=== PATIENT | female | born 1985 | race Caucasian/White ===

== ENCOUNTER 2020-06-10 17:45 | Inpatient (IN) | payer OTHER ==
--- NOTE | 2020-06-10 18:38 | PD.OB.PROG ---
Past Medical History - Primary Care Physician PCP:: Una uNnez Documenting Provider Type: Attending - Admission Chief Complaint: 35 yrs , 39.2 weeks c/o onset LP since 1.00 PM q 10 min. no c/o bleeding or leaking History of Present Illness: [facility] : 11[facility]17[facility]19 O Pos, , Hbsag neg, hep c nr, varicella immune, rubella immune, measles immune, sickle neg , pap NILM, hpv neg, gc/ct neg , hiv neg 03/20/20 1 hr gtt 123, syphilis test neg , Quantiferon ; not noted 05/17/20 : h/h 11.3/35.2, plt 215, GBS POS , gc/ct neg , hiv nr US ;neg NT& NIPT ,04/15/20 : 31.5 wks, vx, post placenta, alok 13.3 efw 4'5" (61 %tile) , - Nursing Documentation Maternal Triage Index: Maternal Triage Index ( Priority 4, Non-urgent MFTI) Nursing Documentation Reviewed: Yes - Past Medical History ...: 2 ...Para: 3 ...Term: 3 ...: 0 ...Spon : 0 ...Induced : 0 ...Living Children: 3 ...LMP: 09/09/20 ... Weeks Gestation by Dates: 39.2 ...EDC by Dates: 06/15/20 - Past Surgical History Past Surgical History: Yes: Carotid Endarterectomy - Smoking History Smoking history: Never smoked Have you smoked in the past 12 months: No - Alcohol/Substance Use Hx Alcohol Use: No History of Substance Use: reports: None - Social History History of Recent Travel: No Review of Systems - Review of Systems Constitutional: reports: No Symptoms Eyes: reports: No Symptoms HENT: reports: No Symptoms Neck: reports: No Symptoms Cardiovascular: reports: No Symptoms Respiratory: reports: No Symptoms Gastrointestinal: reports: No Symptoms Genitourinary: reports: No Symptoms Breasts: reports: No Symptoms Reported Musculoskeletal: reports: No Symptoms Integumentary: reports: No Symptoms Neurological: reports: No Symptoms Endocrine: reports: No Symptoms Hematology/Lymphatic: reports: No Symptoms Psychiatric: reports: No Symptoms Pain Intensity: 5 Physical Exam - Obstetrical Constitutional: Yes: Well Nourished, No Distress, Calm Eyes: Yes: WNL HENT: Yes: WNL Neck: Yes: WNL Cardiovascular: Yes: WNL Lungs: Clear to auscultation Breast(s): Yes: Other (not examined) - Abdominal Exam/OB Fundal Height: 38 Number of Fetuses: Single Presentation: Vertex Regularity: Irregular Intensity: Mild Monitor Mode: External Heart Rate (range): 130-140 Heart Rate Location: [facility] Category: I Accelerations: Non-Uniform Decelerations: None - Vaginal Exam/OB Vaginal Bleeding: No Speculum Exam: No Dilatation (cm): FT Effacement (%): unefface Amniotic Membrane Status: Intact Presentation: Vertex/Position Station: -3 - Physical Exam Musculoskeletal: Yes: WNL Extremities: Yes: WNL. No: Calf Tenderness Edema: LLE: Trace, RLE: Trace Integumentary: Yes: WNL Deep Tendon Reflex Grade: Normal +2 ...Motor Strength: WNL Psychiatric: Yes: WNL, Alert, Oriented Problem List - Problems (1) with 39 completed weeks gestation Code(s): Z3A.39 - 39 WEEKS GESTATION OF (2) Positive GBS test Code(s): B95.1 - STREPTOCOCCUS, GROUP B, CAUSING DISEASES CLASSD ELSWHR (3) Labor established Code(s): VCF7377 - Assessment/Plan 35 yrs , 39.2 weeks irregular UC , cx only FT plan watch for UC on monitor for 1 hr , reexamine pt . 8.30 PM reexam pelvic : cx 1-2 cm/65 % /vx -3/-2 uc 3-5 min , fhr 130-140 cat-1 Plan admit patient for labor
[2020-06-10] MEDS ORDERED: SODIUM CHLORIDE 100 ML IVPB ONE (20:32)
[2020-06-10] MEDS ORDERED: AMPICILLIN SODIUM 2 GM VIAL ONE (20:32)
[2020-06-10] MEDS ORDERED: BUTORPHANOL TARTRATE 1 MG/ML VIAL IVPB ONE (20:36)
[2020-06-10] MEDS ORDERED: PROMETHAZINE HCL 25 MG/1 ML VIAL IVPUSH ONE (20:36)
[2020-06-10] MEDS ORDERED: AMPICILLIN - 2 GM in SODIUM CHLORIDE 100 ML IVPB ONE (20:39)
[2020-06-10] MEDS ORDERED: DEXTROSE 5%-LACTATED RINGERS 1,000 ML IV SCH (20:45)
[2020-06-10 21:14] LABS: BASO % 0.2 % (0-2.0); EOS % 0.9 % (0-4.5); HEMATOCRIT 36.4 % (32.4-45.2); HEMOGLOBIN 12.1 GM/dL (10.7-15.3); LYMPH % 28.2 % (8-40); MCH 26.4 pg (25.7-33.7); MCHC 33.4 g/dl (32.0-36.0); MEAN CELL VOLUME 79.2 fl (80-96); MEAN PLT VOLUME 9.1 fl (7.5-11.1); MONO % 6.3 % (3.8-10.2); NEUT % 64.4 % (42.8-82.8); PLATELET COUNT 193 K/MM3 (134-434); WHITE BLOOD COUNT 7.9 K/mm3 (4.0-10.0)
[2020-06-10] MEDS ORDERED: OXYTOCIN 30 UNITS in 0.9% NS 30 UNIT/500 ML INFUS.BAG IVPB SCH (21:15)
[2020-06-10 21:18] VITALS: BMI 27.5
[2020-06-10 21:20] LABS: INR 0.94 (0.83-1.09); PROTHROMBIN TIME (PATIENT) 11.1 SEC (9.7-13.0)
[2020-06-10 21:48] LABS: CREATININE 0.6 mg/dL (0.55-1.3); POTASSIUM 4.2 mmol/L (3.5-5.1)
[2020-06-10] MEDS ORDERED: OXYTOCIN 30 UNITS in 0.9% NS 30 UNIT/500 ML INFUS.BAG IVPB ONE (21:56)
[2020-06-10 22:09] LABS: ANISOCYTOSIS 1+; MACROCYTOSIS 0; PLATELET ESTIMATE NORMAL
[2020-06-10] MEDS ORDERED: LIDOCAINE HCL 1% PRESERVATIVE FREE - 30ML VIAL ONE (22:17)
[2020-06-10] MEDS ORDERED: OXYTOCIN 20 UNITS in 0.9% NS 20 UNIT/1,000 ML INFUS.BAG IV ONE (22:18)
--- NOTE | 2020-06-10 22:24 | HP ---
Past Medical History - Primary Care Physician PCP:: Una Nunez - Admission Chief Complaint: Chief Complaint: 35 yrs , 39.2 weeks c/o onset LP since 1.00 PM q 10 min. no c/o bleeding or leaking. pt was evaluated for labor asssee, there was change in cx after 2hrs , early labor , pt says she has h/o rapid labor , hence she is admitted History of Present Illness: pnc at , [address] [place] [address] panel : 11/17/19 O Pos, , Hbsag neg, hep c nr, varicella immune, rubella immune, measles immune, sickle neg , pap NILM, hpv neg, gc/ct neg , hiv neg 03/20/20 1 hr gtt 123, syphilis test neg , Quantiferon ; not noted 05/17/20 : h/h 11.3/35.2, plt 215, GBS POS , gc/ct neg , hiv nr US ;neg NT& NIPT ,04/15/20 : 31.5 wks, vx, post placenta, alok 13.3 efw 4'5" (61 %tile) , History Source: Patient, Medical Record Limitations to Obtaining History: No Limitations - Past Medical History 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: No: Alzheimer's, CVA, Dementia, Migraine, Multiple Sclerosis, Peripheral Neuropathy, Parkinson's, Seizure, Syncope, TIA, Vertigo, Other Cardiovascular: No: AFIB, Aneurysm, Aortic Insufficiency, Aortic Stenosis, CAD, CHF, Deep Vein Thrombosis, HTN, Hyperlipdemia, [place], Mitral Insufficiency, Mitral Stenosis, Murmur, Pulmonary Hypertension, Other Pulmonary: No: Asthma, Bronchitis, Cancer, COPD, O2 Dependent, Pneumonia, Previously Intubated, Pulmonary Embolus, Pulmonary Fibrosis, Sleep Apnea, Other Gastrointestinal: No: Ascites, Cancer, Constipation, Crohn's Disease, Diverticulitis, Diverticulosis, Esophageal Varices, Gastritis, GERD, GI Bleed, Hemorrhoids, Hiatal Hernia, Inflamatory Bowel Disease, Irritable Bowel Disease, Pancreatitis, Peptic Ulcer Disease, Ulcerative Colitis, Other Hepatobiliary: No: Cirrhosis, Cholelithiasis, Cholecystitis, Choledocholithiasis, Hepatitis A, Hepatitis B, Hepatitis C, Other Renal/: No: Renal Failure, Renal Inusuff, BPH, Cancer, Hematuria, Hemodialysis, Neurogenic Bladder, Renal Calculi, UTI, Other Reproductive: No: Ectopic , Endometriosis, Fibroids, PID, Polycystic Ovary Syndrome, Postmenopausal, Other ...: 4 ...Para: 3 (G1 04/03/06, 8'13" in [place], G2 07/02/11 nsvd7'12', G3 01/11/13 7'13" [facility] ) ...Term: 3 (2012) ...: 0 ...Spon : 0 ...Induced : 0 ...Living Children: 3 ...Multiple Gestation: 0 ...LMP: 09/09/19 ... Weeks Gestation by Dates: 39.2 ...EDC by Dates: 06/15/20 ...EDC by Sono: 06/15/20 Heme/Onc: Yes: Anemia Infectious Disease: No: AIDS, C-Diff, Herpes Zoster, HIV, MRSA, STD's, Tuberculosis, VREF, Other Psych: No: Addictions, Anxiety, Bipolar, Depression, Panic, Psychosis, Schizophrenia, Other Musculoskeletal: No: Bursitis, Chronic low back pain, Hemiparesis, Hemiplegia, Osteoarthritis, Paraplegia, Other Rheumatology: No: Fibromyalgia, Gout, Lupus, Rheumatoid Arthritis, Sarcoidosis, Vasculitis, Other ENT: No: Allergic Rhinitis, Sinusitis, Other Endocrine: No: Ander's Disease, Berlin's Disease, Diabetes Insipidus, Diabetes Mellitus, Hyperparathyroidism, Hyperthyroidism, Hypothyroidism, Osteopenia, SIADH, Other Dermatology: No: Basal Cell, Cellulitis, Eczema, Melanoma, Psoriasis, Squamous Cell, Other - Past Surgical History Past Surgical History: Yes: None Hx Myomectomy: No Hx Transabdominal Cerclage: No - Smoking History Smoking history: Never smoked Have you smoked in the past 12 months: No - Alcohol/Substance Use Hx Alcohol Use: No History of Substance Use: reports: None - Social History History of Recent Travel: No Home Medications - Allergies Allergies/Adverse Reactions: Allergies Allergy/AdvReac Type Severity Reaction Status Date / Time No Known Allergies Allergy Verified 06/10/20 18:18 Review of Systems - Review of Systems Constitutional: reports: No Symptoms Eyes: reports: No Symptoms, Floaters Neck: reports: No Symptoms Cardiovascular: reports: No Symptoms Respiratory: reports: No Symptoms Gastrointestinal: reports: No Symptoms Genitourinary: reports: No Symptoms Breasts: reports: No Symptoms Reported Musculoskeletal: reports: No Symptoms Integumentary: reports: No Symptoms Neurological: reports: No Symptoms Endocrine: reports: No Symptoms Hematology/Lymphatic: reports: No Symptoms Psychiatric: reports: No Symptoms Pain Intensity: 5 Physical Exam - Maternity Vital Signs: Vital Signs Temperature 98.1 F 06/10/20 21:09 Pulse Rate 82 06/10/20 21:09 Respiratory Rate 18 06/10/20 21:09 Blood Pressure 103/67 06/10/20 21:09 O2 Sat by Pulse Oximetry (%) Selected Entries 06/10/20 21:09 Weight 141 lb Constitutional: Yes: Well Nourished, Moderate Distress Eyes: Yes: WNL HENT: Yes: WNL Neck: Yes: WNL Cardiovascular: Yes: WNL Lungs: Clear to auscultation Breast(s): Yes: WNL - Abdominal Exam/OB Fundal Height: 38 Number of Fetuses: Single Presentation: Vertex (exam at 21.08 hr) Contractions: Yes Regularity: Irregular (5-9 min) Intensity: Mild/Mod Monitor Mode: External Heart Rate (range): 120-125 Heart Rate Location: [facility] Category: I Accelerations: Non-Uniform Decelerations: None - Vaginal Exam/OB Vaginal Bleeding: No Speculum Exam: No Dilatation (cm): 1-2 Effacement (%): 65% Amniotic Membrane Status: Intact Presentation: Vertex/Position Station: -2 - Physical Exam Musculoskeletal: Yes: WNL Extremities: Yes: WNL. No: Calf Tenderness Edema: Yes Edema: LLE: 1+, RLE: 1+ Integumentary: Yes: WNL Deep Tendon Reflex Grade: Normal +2 ...Motor Strength: WNL Psychiatric: Yes: WNL, Alert, Oriented - Labs Lab Results: CBC, BMP 06/10/20 20:45 06/10/20 20:45 Laboratory Tests 06/10/20 06/10/20 06/10/20 20:45 20:45 20:45 PT with INR 11.10 INR 0.94 PTT (Actin FS) 27.2 Blood Type O POSITIVE Antibody Screen Negative Laboratory Tests 06/10/20 20:45 Syphilis Serology Non-reactive Hemorrhage Risk Assessment - Risk Factors Medium Risk Factors: Yes: None High Risk Factors: Yes: None Risk Score: 1 Risk Level: Medium Risk Problem List - Problems (1) with 39 completed weeks gestation Code(s): Z3A.39 - 39 WEEKS GESTATION OF (2) Positive GBS test Code(s): B95.1 - STREPTOCOCCUS, GROUP B, CAUSING DISEASES CLASSD ELSWHR (3) Labor established Code(s): XCV1131 - (4) AMA (advanced maternal age) multigravida 35+ Code(s): O09.529 - SUPERVISION OF ELDERLY MULTIGRAVIDA, UNSPECIFIED TRIMESTER Assessment/Plan 35 yrs , 39.2 weeks in early labor . gbs pos Plan rx Iv Ampicillin prophylaxis Anticipate vag del pt declines pain management Pitocin augmentation due to irregular UC 5-9 min
[2020-06-11] MEDS ORDERED: AMPICILLIN SODIUM 1 GM VIAL ONE (00:32)
[2020-06-11] MEDS ORDERED: SODIUM CHLORIDE 100 ML IVPB ONE (00:32)
[2020-06-11] MEDS ORDERED: AMPICILLIN - 1 GM in SODIUM CHLORIDE 100 ML IVPB SCH (00:39)
--- NOTE | 2020-06-11 01:26 | PN ---
Progress Note (short form) - Note Progress Note: srom on 06/10/20 at 23.00 hs in the bathroom. bloody show 00.28 hr cx 3 cm , irregularly efface, ant lip thick , post erior lip 70% efface , mr , Vx -2 fhr 115-125 , cat-1 uc irregular 3-4 min . 1.30 AM 8cm/80 % /mr.vx 0 uc 2-3 min, fhr 130-140 cat-1 2.20 AM fully dilated /100 %/ vx +2 /pt pushing fhr 120 cat-1 uc 2- min Problem List - Problems (1) with 39 completed weeks gestation Code(s): Z3A.39 - 39 WEEKS GESTATION OF (2) Positive GBS test Code(s): B95.1 - STREPTOCOCCUS, GROUP B, CAUSING DISEASES CLASSD ELSWHR (3) Labor established Code(s): GDR3030 - (4) AMA (advanced maternal age) multigravida 35+ Code(s): O09.529 - SUPERVISION OF ELDERLY MULTIGRAVIDA, UNSPECIFIED TRIMESTER
[2020-06-11] MEDS ORDERED: ACETAMINOPHEN 325 MG TABLET (FP) PO PRN (02:56)
[2020-06-11] MEDS ORDERED: BENZOCAINE 28 GM HEMORRHOIDAL OINTMENT TP PRN (02:56)
[2020-06-11] MEDS ORDERED: WITCH HAZEL 50% (TUCKS) 40 PAD/JAR PAD TP PRN (02:56)
[2020-06-11] MEDS ORDERED: BENZOCAINE 20% 57 GM BOTTLE TP PRN (02:56)
[2020-06-11] MEDS ORDERED: BISACODYL 10 MG SUPP.RECT RC PRN (02:56)
[2020-06-11] MEDS ORDERED: METHYLERGONOVINE MALEATE 0.2 MG/1 ML AMP IM PRN (02:56)
[2020-06-11] MEDS ORDERED: IBUPROFEN 600 MG TABLET (FP) PO PRN (02:56)
[2020-06-11] MEDS ORDERED: OXYTOCIN 20 UNITS in 0.9% NS 20 UNIT/1,000 ML INFUS.BAG IV SCH (03:00)
--- NOTE | 2020-06-11 03:05 | PN ---
Delivery - Delivery Vaginal Delivery: No Problems, Spontaneous (pt delievered vx ,MARI position, cord around neck x2 untagled before the delivery of shoulder , . shoulders deievred without difficulty . baby oral & nasal suction done . cord blood collected, trivascular cord. placenta membranes delievered completely.2nd degree perineal laceration sutured under local anesthesia with chr catgut #2/0 in layers. [place] exam mucosa & sphincter intact.) Type of Anesthesia: Local Episiotomy/Laceration: Perineal Extension/lac, 2nd degree EBL (cc): 300 Delivery, Single - Stages of Labor Date 1st Stage Initiatied: 06/10/20 Time 1st Stage Initiated: 20:00 Date 2nd Stage Initiated: 06/11/20 Time 2nd Stage Initiated: 02:20 Date of Delivery: 06/11/20 Time of Delivery: 02:26 Date Placenta Delivered: 06/11/20 Time Placenta Delivered: 02:33 Placenta: Yes: Spontaneous, Uterine Exploration - Condition of Infant Gender: Female Weight: 8 lb 1 oz Position: Left, OA (cord around neck x2) Total Hours ROM (Hrs/Mins): 3hr33 min - 1 Minute Total Score: 9 5 Minutes Total Score: 9 - Feeding Plan Initial Plan: Elected not to breastfeed exclusively throughout hospitalization Remarks - Remarks Remarks: 35 yrs , 39.2 weeks in labor . PNC at , [facility] GBS Pos , rx IV ampicillin x2 doses for prophylaxis given . Intrapartum course uneventful
[2020-06-11] MEDS ORDERED: OXYTOCIN 20 UNITS in 0.9% NS 20 UNIT/1,000 ML INFUS.BAG IV ONE (04:36)
--- NOTE | 2020-06-11 12:35 | PN ---
Post Progress Note - Subjective Subjective: c/o cramps Post Day: 0 Type of Delivery: Vital Signs: Vital Signs Temperature 98.3 F 06/11/20 09:40 Pulse Rate 67 06/11/20 09:40 Respiratory Rate 18 06/11/20 09:40 Blood Pressure 100/49 L 06/11/20 09:40 O2 Sat by Pulse Oximetry (%) 99 06/11/20 09:40 Breast Exam: Yes: Soft, Other (BF ). No: Engorged Uterus: Yes: Fundus Firm, Fundus below umbilicus Lochia: Yes: Rubra Perineum: Yes: Laceration (healing ) Activity: Ambulating - Labs Labs: CBC WBC 7.9 K/mm3 (4.0-10.0) 06/10/20 20:45 RBC 4.60 M/mm3 (3.60-5.2) 06/10/20 20:45 Hgb 12.1 GM/dL (10.7-15.3) 06/10/20 20:45 Hct 36.4 % (32.4-45.2) D 06/10/20 20:45 MCV 79.2 fl (80-96) L 06/10/20 20:45 MCH 26.4 pg (25.7-33.7) 06/10/20 20:45 MCHC 33.4 g/dl (32.0-36.0) 06/10/20 20:45 RDW 28.0 % (11.6-15.6) H 06/10/20 20:45 Plt Count 193 K/MM3 (134-434) D 06/10/20 20:45 MPV 9.1 fl (7.5-11.1) 06/10/20 20:45 Absolute Neuts (auto) 5.1 K/mm3 (1.5-8.0) 06/10/20 20:45 Neutrophils % 64.4 % (42.8-82.8) 06/10/20 20:45 Lymphocytes % 28.2 % (8-40) D 06/10/20 20:45 Monocytes % 6.3 % (3.8-10.2) 06/10/20 20:45 Eosinophils % 0.9 % (0-4.5) 06/10/20 20:45 Basophils % 0.2 % (0-2.0) 06/10/20 20:45 Nucleated RBC % 0 % (0-0) 06/10/20 20:45 Hypochromia 0 06/10/20 20:45 Platelet Estimate Normal 06/10/20 20:45 Polychromasia 1+ 06/10/20 20:45 Poikilocytosis 0 06/10/20 20:45 Anisocytosis 1+ 06/10/20 20:45 Microcytosis 1+ 06/10/20 20:45 Macrocytosis 0 06/10/20 20:45 Problem List - Problems (1) with 39 completed weeks gestation Code(s): Z3A.39 - 39 WEEKS GESTATION OF (2) Positive GBS test Code(s): B95.1 - STREPTOCOCCUS, GROUP B, CAUSING DISEASES CLASSD ELSWHR (3) Labor established Code(s): [id number] - (4) AMA (advanced maternal age) multigravida 35+ Code(s): O09.529 - SUPERVISION OF ELDERLY MULTIGRAVIDA, UNSPECIFIED TRIMESTER (5) Normal spontaneous vaginal delivery Code(s): O80 - ENCOUNTER FOR FULL-TERM UNCOMPLICATED DELIVERY Assessment/Plan stable. pp cbc pending discharge tomorrow.
[2020-06-11] MEDS: FERROUS SO4 325 MG TABLET (FP) PO SCH ×2 (13:38→16:29)
[2020-06-11] MEDS: PRENATAL VITAMINS W/ FOLIC ACID TABLET (FP) PO SCH (16:29)
[2020-06-12 05:42] VITALS: PULSE 68; TEMP 98.2
[2020-06-12 08:13] LABS: BASO % 0.3 % (0-2.0); EOS % 1.9 % (0-4.5); HEMATOCRIT 31.2 % (32.4-45.2); HEMOGLOBIN 10.3 GM/dL (10.7-15.3); LYMPH % 32.5 % (8-40); MCH 26.3 pg (25.7-33.7); MCHC 33.1 g/dl (32.0-36.0); MEAN CELL VOLUME 79.5 fl (80-96); MEAN PLT VOLUME 9.3 fl (7.5-11.1); MONO % 4.4 % (3.8-10.2); NEUT % 60.9 % (42.8-82.8); PLATELET COUNT 173 K/MM3 (134-434); RBC 3.93 M/mm3 (3.60-5.2); RDW 28.1 % (11.6-15.6)
--- NOTE | 2020-06-12 08:14 | DS ---
Physical Exam-LANGUAGE ASSISTANT Vital Signs: Vital Signs Temperature 98.2 F 06/12/20 05:42 Pulse Rate 68 06/12/20 05:42 Respiratory Rate 18 06/12/20 05:42 Blood Pressure 85/37 L 06/12/20 05:42 O2 Sat by Pulse Oximetry (%) 99 06/11/20 09:40 Constitutional: Yes: Well Nourished, Other (sometimes cramps) Eyes: Yes: WNL HENT: Yes: WNL Neck: Yes: WNL Cardiovascular: Yes: WNL Respiratory: Yes: WNL Gastrointestinal: Yes: WNL Renal/: Yes: WNL Pelvis: Yes: WNL External Genitalia: Yes: Normal ....Post : Yes: Uterus firm, Uterus non-tender, Moderate lochia rubra (perineum healing . laceration clean sutures intact) Breast(s): Yes: WNL (BF , breast not engorged) Extremities: Yes: WNL. No: Calf Tenderness Integumentary: Yes: WNL Neurological: Yes: WNL, Alert, Oriented ...Motor Strength: WNL Psychiatric: Yes: WNL, Alert, Oriented Labs: CBC, BMP 06/10/20 20:45 Laboratory Tests 06/10/20 06/10/20 20:45 20:45 Syphilis Serology Non-reactive COVID-19 (RUDI) Not detected Delivery - Delivery Vaginal Delivery: No Problems, Spontaneous (pt delievered vx ,MARI position, cord around neck x2 untagled before the delivery of shoulder , . shoulders deievred without difficulty . baby oral & nasal suction done . cord blood collected, trivascular cord. placenta membranes delievered completely.2nd degree perineal laceration sutured under local anesthesia with chr catgut #2/0 in layers. [place] exam mucosa & sphincter intact.) Type of Anesthesia: Local Episiotomy/Laceration: Perineal Extension/lac, 2nd degree EBL (cc): 300 Delivery, Single - Stages of Labor Date 1st Stage Initiatied: 06/10/20 Time 1st Stage Initiated: 20:00 Date 2nd Stage Initiated: 06/11/20 Time 2nd Stage Initiated: 02:20 Date of Delivery: 06/11/20 Time of Delivery: 02:26 Time Placenta Delivered: 02:33 Placenta: Yes: Spontaneous, Uterine Exploration - Condition of Infant Retirement Officer/Assistant To The Vice President Present: [place]: Mercedes Duncan Gender: Female Weight: 8 lb 1 oz Position: Left, OA (cord around neck x2) Total Hours ROM (Hrs/Mins): 3hr33 min - 1 Minute Total Score: 9 5 Minutes Total Score: 9 - Feeding Plan Initial Plan: Elected not to breastfeed exclusively throughout hospitalization Remarks - Remarks Remarks: 35 yrs , 39.2 weeks in labor . PNC at , [facility] GBS Pos , rx IV ampicillin x2 doses for prophylaxis given . Intrapartum course uneventful pp course uneventful discharge today Discharge Summary Problems reviewed: Yes Current Active Problems AMA (advanced maternal age) multigravida 35+ (Acute) False labor (Acute) Labor established (Acute) Normal spontaneous vaginal delivery (Acute) Positive GBS test (Acute) with 39 completed weeks gestation (Acute) Prolonged latent phase of labor (Acute) Condition: Stable - Instructions Diet, Activity, Other Instructions: Post Instructions DIET: Continue good diet high in protein, calcium, and iron rich foods. Drink at least eight (8) glasses of water daily in addition to other fluids. ct Regular diet MEDICATIONS: Continue vitamins and iron as previously directed. Motrin and Tylenol may be taken for minor discomfort. ACTIVITY: Mild to moderate exercise may be started in two (2) weeks. Take frequent rest periods. Resume normal activity after six (6) week check up. WOUND CARE OF OPERATIVE SITE: Continue use of perineal bottle until vaginal discharge stops. Keep area clean. Shower daily. Keep abdominal wound dry. Report any drainage or redness to physician. Tub baths, tampons and douches are not permitted for 6 weeks. _ct Breast feeding & or Bottle feeding BREAST CARE: (For those that are not ): If engorgement occurs: Wear tight fitting bra. Take Tylenol or Motrin for pain. Apply cold packs (ice in bags to each breast ) FAMILY PLANNING: There are many control alternatives to pursue and they should be discussed at your first office visit. You may resume sexual activity after your six (6) week check up. (Remember, breast feeding is not a contraceptive) NEXT PHYSICIAN APPOINTMENT: Be certain to call for a three (3) week appointment, unless otherwise directed. Call Clinic or got to Emergency Dept if you have any of the following: Heavy vaginal bleeding Painful urination Leg pain Unusual odor noted to vaginal bleeding High fever Red streaking noted on breast Referrals: Una Nunez MD [Staff Physician] - Disposition: HOME - Home Medications Comprehensive Discharge Medication List: Ambulatory Orders Acetaminophen [Tylenol .Regular Strength -] 650 mg PO Q3H PRN tablet 06/11/20 Benzocaine Ointment [Americaine Ointment -] 1 applic TP PRN PRN tube 06/11/20 Benzocaine [Americaine 20% [place] -] 1 spray TP PRN PRN bottle 06/11/20 Ferrous Sulfate [Feosol] 325 mg PO BIDWM tab 06/11/20 Ibuprofen [Motrin -] 600 mg PO Q4H PRN #20 tablet 06/11/20 Miscellaneous Medical Supply [Breast Pump, Electronic] 1 each NR ASDIR #1 unit 06/11/20 Vitamins (Sjr) - 1 tab PO DAILY #30 tablet 06/11/20 Witch Linsey 50% (Tucks) [Tucks Pads -] 1 pad TP PRN PRN pad 06/11/20
[2020-06-12] MEDS: PRENATAL VITAMINS W/ FOLIC ACID TABLET (FP) PO SCH (09:35)
[2020-06-12] MEDS: FERROUS SO4 325 MG TABLET (FP) PO SCH (09:35)
[2020-06-12 10:06] VITALS: BP 90/57
[2020-06-12] MEDS ORDERED: DIPHTH,PERTUSS(ACELL),TET 0.5 ML DISP.SYRIN IM ONE (11:00)
[2020-06-12] MEDS ORDERED: SENNOSIDES/DOCUSATE COMBO (SENNA PLUS) TABLET (UD) PO PRN (22:00)
== END 2020-06-12 12:35 | disposition home or self-care (01) | DRG 560 ==
LOC: JDEL 17:45 → JLDR 20:20 → J3W 06-11 12:15
PROVIDERS: ADMIT Obstetrics & Gynecology; ATTEND Obstetrics & Gynecology
PROC: 10E0XZZ Delivery of Products of Conception, External Approach (ICD-10-PCS; principal; 2020-06-11)
PROC: 0W8NXZZ Division of Female Perineum, External Approach (ICD-10-PCS; 2020-06-11)
PROC: 0KQM0ZZ Repair Perineum Muscle, Open Approach (ICD-10-PCS; 2020-06-11)
DX: O63.9 Long labor, unspecified (principal); O70.1 Second degree perineal laceration during delivery; O99.824 Streptococcus B carrier state complicating childbirth; B95.1 Streptococcus, group B, as the cause of diseases classified elsewhere; O69.81X0 Labor and delivery complicated by cord around neck, without compression, not applicable or unspecified; O99.03 Anemia complicating the puerperium; D64.9 Anemia, unspecified; Z3A.39 39 weeks gestation of pregnancy; Z37.0 Single live birth
CPT/HCPCS: 36415; 59409; 80048; 85025; 85610; 85730; 86780; 86850; 86900; 86901; 90715; U0003

== ENCOUNTER 2020-08-11 04:31 | Day surgery (SDC) | payer OTHER ==
[2020-08-10 11:27] VITALS: BMI 24.2
[2020-08-11] MEDS ORDERED: KETOROLAC TROMETHAMINE 30 MG/1 ML VIAL ONE (07:36)
[2020-08-11] MEDS ORDERED: DEXAMETHASONE SOD PHOSPHATE 4 MG/1 ML VIAL ONE (07:36)
[2020-08-11] MEDS ORDERED: ROCURONIUM BROMIDE 50 MG/5 ML SYRINGE ONE (07:36)
[2020-08-11] MEDS ORDERED: MIDAZOLAM HCL 2 MG/2 ML SINGLE DOSE VIAL ONE (07:36)
[2020-08-11] MEDS ORDERED: PROPOFOL 20 ML ONE (07:36)
[2020-08-11] MEDS ORDERED: ceFAZolin SODIUM 1 GM VIAL ONE (07:36)
[2020-08-11] MEDS ORDERED: LIDOCAINE HCL/PF 2% SDV 5ML VIAL ONE (08:18)
[2020-08-11] MEDS ORDERED: BUPIVACAINE HCL/PF 0.5% (5 MG/ML) 30 ML VIAL IJ ONE (08:25)
[2020-08-11] MEDS ORDERED: NEOSTIGMINE METHYLSULFATE 0.5 MG/ML - 10 ML MDV ONE (08:42)
[2020-08-11] MEDS ORDERED: ONDANSETRON 4 MG/2 ML VIAL IVPUSH PRN (10:03)
[2020-08-11] MEDS ORDERED: oxyCODONE HCL 5 MG TABLET PO PRN ×2 (10:03)
[2020-08-11] MEDS ORDERED: LACTATED RINGERS SOLUTION 1,000 ML IV SCH (10:15)
[2020-08-11 12:03] VITALS: BP 113/67; PULSE 68; TEMP 97.2
== END 2020-08-11 12:15 | disposition home or self-care (01) ==
LOC: JASU-SURG 04:31
PROVIDERS: ATTEND Student in an Organized Health Care Education/Training Program
PROC: 0UT74ZZ Resection of Bilateral Fallopian Tubes, Percutaneous Endoscopic Approach (ICD-10-PCS; principal; 2020-08-11 08:00)
DX: Z30.2 Encounter for sterilization (principal)
CPT/HCPCS: 88302-TC; 94760